=== PATIENT | male | born 1965 | race African-American/Black ===

== ENCOUNTER 2020-06-30 15:14 | Emergency (ER) | payer MEDICARE, MEDICAID, SELFPAY ==
[2020-06-30 15:16] VITALS: BP 160/91; PULSE 63; RESP 22; TEMP 37.1; O2SAT 99; BMI 44.1
[2020-06-30 15:28] VITALS: O2SAT 99
--- NOTE | 2020-06-30 15:28 | EKG12_ITS ---
Test Reason : CP Blood Pressure : / mmHG Vent. Rate : 066 BPM Atrial Rate : 066 BPM P-R Int : 214 ms QRS Dur : 098 ms QT Int : 402 ms P-R-T Axes : 041 016 056 degrees QTc Int : 421 ms Sinus rhythm with 1st degree A-V block Possible Left atrial enlargement Borderline ECG Confirmed by NIDIA SHARP, ANDREIA ([id number]), film editor supervisor MARLYS ARGUETA ([id number]) on 07/02/2020 9:46:47 AM Referred By: HESHAM Confirmed By:ANDREIA JACOB MD
--- NOTE | 2020-06-30 15:29 | EDS_ITS ---
HPI History of Present Illness Chief Complaint: Chest Pain Informant: patient and spouse/S.O. Onset/Context/Timing Onset: Today and Hours (1 hour prior to presentation) Activity at onset: sudden, onset and rest Timing: Intermittent Quality: Positive for Sharp Location: Left Parasternal Current Severity: Mild Maximum Severity: Moderate Worsened By: Nothing Relieved By: Nothing Associated Symptoms: Negative for Nausea, Vomiting, Diaphoresis, Dyspnea, Cough, Fever, Lightheadedness and Palpitations Narrative Narrative: Patient is a 54-year-old male who presents with left-sided sharp chest pain that started 1 hour ago while he is in doctor's office waiting for his . He had no associated symptoms. He states there was pain in the back of his left arm. He denies history of coronary disease. Does have history of hypertension hypercholesterolemia. He has never smoked. No family members with coronary disease at an early age. He denies history of VTE or risk factors. He denies leg pain, swelling or discoloration. He denies cough or shortness of breath. He has had dyspnea on exertion for over a year. He has never been tested for obstructive sleep apnea. He denies orthopnea or PND. He denies abdominal pain, black stool or maroon-colored stool. Prior Similar Symptoms: No Recent Illness/Hospitalization: No CVD Risk Factors: Positive for Hypertension and Hypercholesterolemia; Negative for Diabetes, Family History 1' </=55 and Smoking PE Risk Factors: Negative for Recent Travel/Surgery, Recent Immobilization, Prior DVT or PE, Cancer and OCP + Smoking + >/=35 TAD Risk Factors: Positive for Hypertension; Negative for Marfan's Syndrome and Family History PFSH PFSH Allergy/AdvReac Type Severity Reaction Status Date / Time brompheniramine Allergy Shortness Verified 06/30/20 15:16 [From Dimetapp of breath (brompheniramine-PPA)] morphine Allergy Shortness Verified 06/30/20 15:16 of breath phenylpropanolamine Allergy Shortness Verified 06/30/20 15:16 [From Dimetapp of breath (brompheniramine-PPA)] Social History (Updated 06/30/20 @ 15:[address] Chandler Grewal MD) household members: spouse housing: house Smoking Status: Never smoker alcohol intake: never substance use type: does not use ROS ROS ED Constitutional Constitutional ED: Denies chills, fever(s) or subjective Eyes Eyes: Denies blurry vision or change in vision ENT ENT ED: Denies ear pain, rhinorrhea or sore throat Cardiovascular Cardiovascular: Reports chest pain; Denies orthopnea, palpitations, paroxysmal nocturnal dyspnea or racing heartbeat Respiratory/Chest Respiratory/Chest: Reports dyspnea on exertion; Denies cough, dyspnea, orthopnea, paroxysmal nocturnal dyspnea or sputum Gastrointestinal Gastrointestinal: Denies abdominal pain, diarrhea, melena, nausea or vomiting Genitourinary Genitourinary ED: Denies dysuria, hematuria or urinary frequency Musculoskeletal Musculoskeletal: Denies arthralgias, myalgias or neck pain Integumentary Denies abscess, Abrasions or rash Neurologic Neurologic: Denies headache(s) or weakness Psychiatric Psychiatric: Denies anxiety or depression Endocrine Endocrinology: Denies polydipsia, polyphagia or polyuria Hematologic/Lymphatic Hematologic/Lymphatic: Denies easy bruising EXAM Physical Exam Const Vital Signs: 06/30/20 15:16 06/30/20 15:19 06/30/20 15:28 Temperature 98.7 F Temperature Source Temporal Pulse Rate 63 Respiratory Rate 22 H Respiratory Effort Normal Non-Labored Blood Pressure 160/91 H Blood Pressure Mean 114 Pulse Ox 99 99 Oxygen Delivery Method Room Air Room Air Positive well nourished, well developed and obese General Appearance ED: well developed and NAD Nutritional Appearance: obese HEENT Reports moist mucous membranes normocephalic and atraumatic Eyes PERRL and EOMs intact bilaterally General Eye ED: Negative for pale conjunctiva or scleral icterus Neck no lymphadenopathy, supple and no JVD General: Negative for tenderness Chest Wall inspection of chest normal and palpation of chest normal Resp normal respiratory effort Effort and Inspection: respiratory distress Cardio regular rate, regular rhythm, S1 normal heart sound, S2 normal heart sound and no murmurs GI normal to inspection, nondistended, normoactive bowel sounds Back/Spine no CVA tenderness Extremity normal to inspection Extremity Narrative: There is no asymmetry, swelling, discoloration, leg vein distention, palpable cords or tenderness along the distribution of the deep venous system. General Extremety ED: Negative for edema or tenderness General Extremity: Negative for edema Neuro oriented x3, CN's II-XII intact bilaterally and no sensory deficits noted Sensorium / Orientation: awake, alert, oriented to person and oriented to place Motor Exam: strength 5/5 throughout Psych mental status grossly normal Skin no rashes or lesions noted Heart Score History: Slightly/Non-Suspicious ECG: Normal Age: >45 - <65 years Risk Factors: 1 or 2 Risk Factors Troponin: </= Normal Limit Score: 2 MDM MDM MDM Narrative Medical decision making narrative: Patient presents with atypical chest pain. Need to evaluate for cardiac versus noncardiac etiology. EKG, chest x-ray and appropriate labs were ordered. Lab Data Attestation: I reviewed the patient's lab results. Labs: Laboratory Results - last 24 hr 06/30/20 06/30/20 16:00 16:00 WBC 4.3 L RBC 4.32 L Hgb 12.5 L Hct 38.9 L MCV 90.0 MCH 28.9 MCHC 32.1 RDW Std Deviation 49.5 H RDW Coeff of Dandy 15.1 H Plt Count 147 L MPV 10.8 Immature Gran % (Auto) 0.500 Neut % (Auto) 47.4 Lymph % (Auto) 28.7 [place] % (Auto) 16.6 H Eos % (Auto) 6.1 H Baso % (Auto) 0.7 Absolute Neuts (auto) 2.0 Absolute Lymphs (auto) 1.23 Nucleated RBC % 0 Sodium 139 Potassium 4.1 Chloride 108 H Carbon Dioxide 26.0 Anion Gap 5 BUN 21 H Creatinine 1.72 H Estim Creat Clear Calc 53.26 Est GFR (MDRD) Af Amer 53 L Est GFR (MDRD) Non-Af 44 L BUN/Creatinine Ratio 12.2 Glucose 90 Calcium 8.7 Troponin I < 0.015 She is remarkable for mild anemia. Electrolyte panel remarkable for creatinine of 1.72 with a GFR of 53. Troponin is normal. With a normal EKG, normal troponin and very atypical story and heart score of 2 patient was discharged to home to follow-up with primary care physician. Radiography Chest X-Ray - ED: 1 View, Read by ED Physician, Read by Radiologist, Heart, No Acute Disease, Chronic Changes and - (There is fullness in the right hilum. Radiology report was read and agree that this most likely represents pulmonary vasculature.) Diagnostic Testing: Radiology Impression Chest X-Ray 06/30/20 16:02 IMPRESSION: Mild bilateral perihilar interstitial thickening. Asymmetric right hilar prominence of indeterminate etiology etiology. Would be helpful to exclude possibility of perihilar nodule versus enlarged pulmonary artery. Electronically Signed: Johan Romano MD at 16:17 EDT , Service support , EKG Initial EKG: Interpretation: Sinus Rhythm Comments: Normal sinus rhythm with a first-degree heart block and a ventricular rate of 66. MN interval is 214 ms. Cures duration 98 ms. QT interval 402 ms. [place] is normal. There is no evidence of ischemia. Discharge Plan Triage Chief Complaint: Chest Pain ED Provider: Chandler Grewal Dx/Rx/DC Orders Clinical Impression: Acute left-sided thoracic back pain Instructions: ED Chest Pain, Uncertain Cause Primary Care Provider: Mkiki Boothe Referrals: Mikki Boothe MD [Primary Care Provider] - 3-5 Days if not improving Disposition Disposition: Home, self care
[2020-06-30] MEDS: Aspirin 81 MG TAB.CHEW 324 MG PO (15:54)
--- NOTE | 2020-06-30 16:02 | RAD_ITS ---
STUDY: X-RAY CHEST REASON FOR EXAM: Male, 54 years old. chest pain TECHNIQUE: AP portable COMPARISON: None. FINDINGS: Mild bilateral perihilar interstitial thickening.. There is no demonstrated pleural abnormality. Normal size heart. Normal mediastinum there is mild right hilar asymmetry. Normal visualized pulmonary arteries. Tortuous aortic arch and descending thoracic aorta. Dorsal spine demonstrates degenerative change.. Normal visualized ribs, clavicles, and shoulders. There is no demonstrated abnormality of the visualized soft tissue structures of the upper abdomen. RAD/Chest 1 View (Portable) IMPRESSION: Mild bilateral perihilar interstitial thickening. Asymmetric right hilar prominence of indeterminate etiology etiology. Would be helpful to exclude possibility of perihilar nodule versus enlarged pulmonary artery. Electronically Signed: Johan Romano MD at 16:17 EDT , Service support ,
[2020-06-30 16:14] LABS: Absolute Lymphocyte Count 1.23 X10^3/uL (0.83-4.51); Basophil# 0.03 X10^3/uL; Basophil% 0.7 % (0-1); Eosinophil# 0.26 X10^3/uL; Eosinophils% 6.1 % (0-5); Hematocrit 38.9 % (40-54); Hemoglobin 12.5 g/dL (13.0-16.5); Lymphocyte # 1.23 X10^3/ul (0.83-4.51); Lymphocyte % 28.7 % (19-41); Mean Corp Hgb Conc 32.1 g/dL (32-36); Mean Corpuscular Hgb 28.9 pg (27.0-32.0); Mean Platelet Vol. 10.8 fl (6.2-12.0); Monocyte# 0.71 X10^3/uL; Monocyte% 16.6 % (0-10); NRBC Flagged by Analyzer 0 % (0-5); Neutrophil # 2.03 X10^3/uL (2.7-7.7); Neutrophil % 47.4 % (47-70); Platelet Count 147 K/mm3 (150-450); RBC Distribution Width CV 15.1 % (11.6-14.6); RBC Distribution Width SD 49.5 fl (35.1-43.9); Red Blood Count 4.32 M/mm3 (4.6-6.2); White Blood Count 4.3 K/mm3 (4.4-11.0)
[2020-06-30 16:28] LABS: Anion Gap 5 (5-15); BUN 21 mg/dL (7-18); BUN/Creat Ratio 12.2 RATIO (10-20); Calcium,Total 8.7 mg/dL (8.5-10.1); Chloride 108 mmol/L (98-107); Creatinine, Serum 1.72 mg/dL (0.70-1.30); EST Glomerular Filtration Rate 44 mL/min (>60); Est Glom Filt Rate - Afr Amer 53 mL/min (>60); Estimated Creatinine Clearance 53.26 ml/min; Glucose 90 mg/dL (74-106); Potassium 4.1 mmol/L (3.5-5.1); Sodium Level 139 mmol/L (136-145)
[2020-06-30 17:14] VITALS: BP 136/95; PULSE 64; RESP 24; O2SAT 96
== END 2020-06-30 17:36 | disposition home or self-care (01) ==
PROVIDERS: Emergency Provider Emergency Medicine; PCP Internal Medicine
DX: R07.89 Other chest pain (principal); M54.6 Pain in thoracic spine; M79.602 Pain in left arm; I10 Essential (primary) hypertension; E78.00 Pure hypercholesterolemia, unspecified; E66.9 Obesity, unspecified
CPT/HCPCS: 71045; 80048; 84484; 85025; 93005; 99284